=== PATIENT | male | born 1965 | race African-American/Black ===

== ENCOUNTER 2017-12-05 09:20 | Emergency (ER) | payer OTHER ==
[2017-12-05 09:34] VITALS: RESP 18; TEMP 98.7
[2017-12-05] MEDS ORDERED: KETOROLAC 60 MG/2 ML VIAL IM STA (10:41)
[2017-12-05] MEDS ORDERED: ORPHENADRINE 30 MG/ML 2 ML VIAL IM STA (10:41)
--- NOTE | 2017-12-05 10:56 | ED ---
Back Pain HPI - General Chief Complaint: Back Pain/Injury Stated Complaint: Back Injury Time Seen by Provider: 12/05/17 10:31 Source: patient, RN notes reviewed Limitations: no limitations - History of Present Illness Initial Comments: 52-year-old male presents emergency Department chief complaint of right leg pain , back pain. Patient has chronic back pain and states that she does not have a current physician. Patient denies bowel bladder incontinence or retention. Denies any saddle anesthesias or lower shunted paresthesias. Patient has a right leg pain, right knee pain. He denies any trauma but states he's been more active outside recently. Patient states that he has mild swelling to his right leg. Patient reports no fevers no chills. Patient states pain is worse with movement better at rest. He tried some [id number] medications no relief. - Related Data Home Medications Medication Instructions Recorded Confirmed Loratadine-Pseudoeph 10-240 mg 1 tab PO DAILY PRN 12/05/17 12/05/17 [Claritin-D 24 Hr] Previous Rx's Medication Instructions Recorded Cyclobenzaprine [Flexeril] 10 mg PO TID PRN #15 tab 12/05/17 Ibuprofen [Motrin] 600 mg PO Q8HR PRN #30 tab 12/05/17 traMADol HCl [Ultram] 50 mg PO Q6H PRN #20 tab 12/05/17 Allergies Allergy/AdvReac Type Severity Reaction Status Date / Time No Known Allergies Allergy Verified 12/05/17 11:34 Review of Systems ROS Statement: Those systems with pertinent positive or pertinent negative responses have been documented in the HPI. ROS Other: All systems not noted in ROS Statement are negative. Past Medical History Additional Past Medical History / Comment(s): chronic back and left knee pain History of Any Multi-Drug Resistant Organisms: None Reported Additional Past Surgical History / Comment(s): throat surgery, foot surgery Past Psychological History: Bipolar Smoking Status: Current every day smoker Past Alcohol Use History: None Reported Past Drug Use History: None Reported General Exam Limitations: no limitations General appearance: alert, in no apparent distress Head exam: Present: atraumatic, normocephalic, normal inspection Respiratory exam: Present: normal lung sounds bilaterally. Absent: respiratory distress, wheezes, rales, rhonchi, stridor Cardiovascular Exam: Present: regular rate, normal rhythm, normal heart sounds. Absent: systolic murmur, diastolic murmur, rubs, gallop, clicks GI/Abdominal exam: Present: soft, normal bowel sounds. Absent: distended, tenderness, guarding, rebound, rigid Extremities exam: Present: other (Mild swelling noted to right lower extremity with equal pedal pulses, there is pain with range of motion the right knee and tenderness palpation. There is no laxity noted. Patient has pain with right straight leg raise. There is no hip tenderness no pain with log rolling.) Back exam: Present: normal inspection, full ROM (Discomfort with forward flexion , rotation), tenderness (Right low back), muscle spasm, paraspinal tenderness. Absent: vertebral tenderness Neurological exam: Present: alert, oriented X3, CN II-XII intact, normal gait ( Patient had difficulty ambulating), reflexes normal. Absent: motor sensory deficit Course Vital Signs 12/05/17 09:29 Temperature 98.7 F Pulse Rate 80 Respiratory 18 Rate Blood Pressure 152/82 O2 Sat by Pulse 99 Oximetry Medical Decision Making - Medical Decision Making 52-year-old male presents from for low back pain right leg pain. Patient ultrasound, x-ray. Patient IS NEGATIVE FOR ACUTE DVT. PATIENT HAS MILD SWELLING TO THE RIGHT KNEE BUT NO BONY STRUCTURE INJURY. PATIENT DOES HAVE PAIN WITH RANGE OF MOTION TO HIS BACK HOURS MUSCLE SPASM. PATIENT IS CHRONIC BACK PAIN. MAST WAS REVIEWED ESSENTIALLY NO RECENT MEDICATIONS FILLED. PATIENT IS REQUESTING PRIMARY CARE PHYSICIAN REFERRAL. PATIENT HAS NO BOWEL BLADDER INCONTINENCE OR RETENTION. PATIENT BE DISCHARGED WITH ANTI- INFLAMMATORIES, MUSCLE RELAXERS. RETURN PARAMETERS WERE DISCUSSED. Disposition Clinical Impression: Lumbar back pain, Right knee pain Disposition: HOME SELF-CARE Condition: Stable Instructions: Acute Low Back Pain (ED) Additional Instructions: Please return to the Emergency Department if symptoms worsen or any other concerns. Prescriptions: Cyclobenzaprine [Flexeril] 10 mg PO TID PRN #15 tab PRN Reason: Muscle Spasm Ibuprofen [Motrin] 600 mg PO Q8HR PRN #30 tab PRN Reason: Pain traMADol HCl [Ultram] 50 mg PO Q6H PRN #20 tab PRN Reason: Pain Is patient prescribed a controlled substance at d/c from ED?: Yes If prescribed controlled substance>3 days was MAPS reviewed?: No When asked, does pt state using other controlled substances?: No Referrals: Marybeth Shaikh MD [STAFF PHYSICIAN] - 1-2 days
--- NOTE | 2017-12-05 11:03 | XR ---
EXAMINATION TYPE: XR knee complete RT DATE OF EXAM: 12/05/2017 COMPARISON: NONE HISTORY: 52 year-old male right knee pain after old injury TECHNIQUE: 3 views FINDINGS: Mild anterior soft tissue swelling. No significant knee joint effusion. Mild degenerative spurring in the patellofemoral compartment. No acute fracture, subluxation, or dislocation seen. IMPRESSION: No acute osseous abnormality seen. Mild anterior soft tissue swelling.
--- NOTE | 2017-12-05 11:53 | US ---
EXAMINATION TYPE: US venous doppler duplex LE RT DATE OF EXAM: 12/05/2017 11:24 AM COMPARISON: NONE CLINICAL HISTORY: 52-year-old male with right leg pain following fall at work SIDE PERFORMED: Right TECHNIQUE: The lower extremity deep venous system is examined utilizing real time linear array sonog brandon with graded compression, doppler sonography and color-flow sonography. FINDINGS: VESSELS IMAGED: External Iliac Vein (EIV) Common Femoral Vein Deep Femoral Vein Greater Saphenous Vein * Femoral Vein Popliteal Vein Small Saphenous Vein * Proximal Calf Veins (* superficial vessels) Right Leg: Appears negative for DVT IMPRESSION: No evidence for DVT within the right lower extremity imaged from the groin to the upper calf.
[2017-12-05 12:43] VITALS: BP 140/83; PULSE 64
== END 2017-12-05 13:00 | disposition home or self-care (01) ==
LOC: EC 09:20
DX: M25.561 Pain in right knee (principal); M62.830 Muscle spasm of back; M79.89 Other specified soft tissue disorders; M79.604 Pain in right leg; F17.200 Nicotine dependence, unspecified, uncomplicated
CPT/HCPCS: 73562; 93971; 99284; 96372 ×2; J2360; J1885